=== PATIENT | male | born 2005 | race Caucasian/White ===

== ENCOUNTER 2025-06-15 10:52 | Emergency (ER) | payer MEDICAID, SELFPAY ==
--- NOTE | ~2025-06-15 | US_ITS ---
CLINICAL HISTORY: L sided testicle pain, area of fluctuance US scrotum with Doppler Comparison: None Technique: Real time sonographic imaging, including color-flow imaging, was performed by the in store marketing associate. Multiple phone representative static images were saved for review. Findings: Right testicle normal size and echotexture, 4.2 cm. Normal color flow and spectral tracing. A tiny epididymal head cyst measuring up to 1 mm noted. Otherwise, unremarkable epididymis. No hydrocele or varicocele. Left testicle normal size and echotexture, 4.4 cm. Doppler interrogation reveals relative hyperemia of the testicle and epididymis. Left epididymal head cyst measuring up to 3 mm and 4 mm are noted. There may be some very subtle epididymal hyperemia, suggesting epididymitis/orchitis. Additionally, there is a complex collection lateral to the testicle measuring 3.1 x 3.0 x 1.3 cm with some peripheral blood flow, raising concern for infected collection or abscess/phlegmon.. No hydrocele or varicocele. Impression: 1. Relative hyperemia of the left testicle and epididymis raising concern for orchitis/epididymitis. 2. Additionally there is a circumscribed complex collection lateral to the left testicle measuring up to 3.1 cm maximal dimension, raising concern for infected collection or abscess in this location. This document has been electronically signed by: Vic Stanley MD on 06/15/2025 15:00:44
--- NOTE | ~2025-06-15 | US_ITS ---
CLINICAL HISTORY: L sided testicle pain, area of fluctuance US scrotum with Doppler Comparison: None Technique: Real time sonographic imaging, including color-flow imaging, was performed by the eyeglass cutter. Multiple physician representative static images were saved for review. Findings: Right testicle normal size and echotexture, 4.2 cm. Normal color flow and spectral tracing. A tiny epididymal head cyst measuring up to 1 mm noted. Otherwise, unremarkable epididymis. No hydrocele or varicocele. Left testicle normal size and echotexture, 4.4 cm. Doppler interrogation reveals relative hyperemia of the testicle and epididymis. Left epididymal head cyst measuring up to 3 mm and 4 mm are noted. There may be some very subtle epididymal hyperemia, suggesting epididymitis/orchitis. Additionally, there is a complex collection lateral to the testicle measuring 3.1 x 3.0 x 1.3 cm with some peripheral blood flow, raising concern for infected collection or abscess/phlegmon.. No hydrocele or varicocele. Impression: 1. Relative hyperemia of the left testicle and epididymis raising concern for orchitis/epididymitis. 2. Additionally there is a circumscribed complex collection lateral to the left testicle measuring up to 3.1 cm maximal dimension, raising concern for infected collection or abscess in this location. This document has been electronically signed by: Vic Stanley MD on 06/15/2025 15:00:44
[2025-06-15 10:59] VITALS: BP 145/82; PULSE 108; RESP 18; TEMP 36.7; O2SAT 94; BMI 28.7
[2025-06-15 12:00] VITALS: BP 125/61; PULSE 89; TEMP 37; O2SAT 96
--- NOTE | 2025-06-15 12:03 | ED_ITS ---
HPI - Skin/Abscess/Foreign Bdy General Chief complaint: Skin/Abscess/Foreign Body Stated complaint: Genital Swelling Time Seen by Provider: 06/15/25 11:20 Source: patient, RN notes reviewed and old records reviewed Mode of arrival: ambulatory Limitations: no limitations History of Present Illness ED Provider: MARY Rodgers HPI narrative: 20-year-old male with medical history of asthma, depression, ADHD, presents to the ED due to 1 week of painful scrotal lesion. Patient reports lesion began small and has progressively enlarged. Describes pain as 8/10. No spontaneous drainage to date. Patient reports abscesses in this area before but has not required I&D and have resolved on their own. Denies drainage, penile discharge, dysuria, frequent urination, fevers, chills, abdominal pain, nausea, vomiting Related Data Previous Rx's ?Medication ?Instructions ?Recorded fluticasone propionate 50 1 spray intranasal DAILY 30 days 06/04/21 mcg/actuation nasal #15.8 mL spray,suspension (Children's Flonase Allergy Relief) albuterol sulfate 90 mcg/actuation 2 puff inhalation Q 4-6H PRN 01/01/22 aerosol inhaler shortness of breath or wheez ing 30 days #18 grams doxycycline hyclate 100 mg tablet 100 mg PO BID 7 days #14 tabs 06/15/25 Allergies Allergy/AdvReac Type Severity Reaction Status Date / Time No Known Allergies (No Known Allergy Verified 06/15/25 11:02 Allergies*) Review of Systems Review of Systems: Yes all other systems are reviewed and are negative PMFSH Past Medical History Attestation statement: The following information was validated with the patient. Source: old records reviewed and nursing notes reviewed Medical History (Updated 06/16/25 @ 00:00 by Dannielle Vanessa) ADHD (attention deficit hyperactivity disorder), combined type Sleep-wake cycle disorder Depression Social History Social History Household Members Other:: lives with GM. was in foster care Physical Exam Vital Signs: Vital Signs: Last Vital Signs Temp 97.8 F 06/15/25 17:47 Pulse 89 06/15/25 17:47 Resp 16 06/15/25 17:47 BP 120/64 06/15/25 17:47 Pulse Ox 98 06/15/25 17:47 O2 Del Method Room Air 06/15/25 17:47 BMI result Body Mass Index 28.7 GENERAL APPEARANCE: ?AxOx4, generally well-appearing, no acute distress. HEENT: ?NC, AT. MMM. EOMI, clear conjunctiva, oropharynx clear. NECK: ?Supple without lymphadenopathy.? No stiffness or restricted ROM. HEART:? Normal rate and regular rhythm, normal S1/S2, no m/r/g LUNGS:? CTAB, moving air well. No crackles or wheezes are heard. ABDOMEN: ?Soft, nontender, nondistended with good bowel sounds heard. : No lesions or vesicles of the penile shaft or meatus, no discharge from the meatus, cremasteric reflex intact, no high riding testicle noted, small area of fluctuance with erythema, and area of thickened scrotal skin lateral to the abscess, no drainage noted. BACK: No CVAT, no obvious deformity. EXTREMITIES: ?Without cyanosis, clubbing or edema. NEUROLOGICAL: ?Grossly nonfocal. Alert and oriented, moving all 4 extremities. Observed to ambulate with normal gait. Skin: ?Warm and dry without any rash. Medications Administered Discontinued Medications Generic Name Dose Route Start Last Admin Trade Name Freq PRN Reason Stop Dose Admin Ceftriaxone Sodium 500 mg 06/15/25 17:07 06/15/25 17:37 Ceftriaxone Sodium 500 Mg Vial IM 06/15/25 17:08 500 mg ONCE ONE Administration Lidocaine/Epinephrine 30 ml 06/15/25 16:45 06/15/25 17:37 Lidocaine Hcl 1% Pf/Epi 1:200,000 30 Ml Vial SUBCUT 06/15/25 16:46 Not Given ONCE ONE Lidocaine/Epinephrine 10 ml 06/15/25 16:53 06/15/25 17:37 Lidocaine Hcl 1%/Epi 1:100,000 20 Ml Vial INFILTRATI 06/15/25 16:54 10 ml ONCE ONE Administration Morphine Sulfate 15 mg 06/15/25 17:07 06/15/25 17:37 Morphine Sulfate Immed Release 15 Mg Tablet PO 06/15/25 17:08 15 mg ONCE ONE Administration Medical Decision Making Medical Decision Making MDM Narrative: 20-year-old male with medical history of asthma, depression, ADHD, presents to the ED due to 1 week of painful scrotal lesion. Patient reports lesion began small and has progressively enlarged. Describes pain as 8/10. No spontaneous drainage to date. VS on initial observation-BP 145/82, pulse rate of 108, respiratory rate of 18, afebrile with oral temp of 98.1?, O2 saturation 94% on room air. On physical exam No lesions or vesicles of the penile shaft or meatus, no discharge from the meatus, cremasteric reflex intact, no high riding testicle noted, small area of fluctuance with erythema, and area of thickened scrotal skin lateral to the abscess, no drainage noted. Plan: US scrotal doppler U/S scrotum Doppler reveals hyperemia of L testicle concerning for orchitis/epididdmitis, with circumscribed complex collection of L testicle concerning for abscess. My attending physician Dr. Montoya did bedside ultrasound for I&D. Please see procedure note for I&D completed by Dr. Montoya in the course section of this note. Patient had area cleaned with sterile saline, anesthetized with 1% lidocaine and epinephrine and I and D performed. Copious amounts of purulent fluid was drained from this area and wick was placed. Patient was treated with 500 mg IM ceftriaxone, and discharged home with 7 day course of 100 mg b.i.d. doxycycline for bacterial coverage. I placed referral for Urology for patient to follow up with them. I educated patient on how to care for the opening with wick placement and instructed him to keep that in place for 48 hours and to not submerge the area under water over the next 48 hours. Patient well enough to go home for self-care today. Patient and his family are in agreement of the plan. Differential Diagnosis Differential Diagnoses: The differential diagnosis associated with the presentation includes Testicular torsion Epididymitis Testicular hydrocele Testicular spermatocele Sebaceous cyst Testicular abscess Admission/Observation Consideration of admission/observation: Escalation of care including admission/observation considered Lab Data Labs: Lab Results 06/15/25 Range/Units 17:36 Urine Color Yellow Urine Appearance Cloudy Urine pH 6.5 (5.0-9.0) Ur Specific [place] 1.020 (1.005-1.025) Urine Protein Negative (Neg-Trace) mg/dL Urine Glucose (UA) Negative (Negative) mg/dL Urine Ketones 40 (Negative) mg/dL Urine Blood Large (3+) H (Negative) Urine Nitrite Negative (Negative) Ur Leukocyte Esterase Negative (Negative) Urine RBC >20 H (0-2) /HPF Urine WBC 0-5 (0-5) /HPF Ur Squamous Epith Cells 0-2 (0-2) /HPF Urine Bacteria None Seen (None Seen) Hyaline Casts 0-2 (0-2) /LPF Ur N gonorrhoeae DNA (PCR) NOT DETECTED (Not Detect.) Ur Chlamydia DNA (PCR) NOT DETECTED (Not Detect.) Independent Interpretation I performed an independent interpretation of an: Ultrasound Interpretation: I personally interpreted the scrotal ultrasound which reveals fluid collection concerning for abscess, and concerns of epididymitis, I agree with the radiologist's interpretation Radiology Impression Discussion of test interpretation with radiology: I have reviewed the radiologist's reading. Radiologist Impression: U/S scrotum Doppler Findings: Right testicle normal size and echotexture, 4.2 cm. Normal color flow and spectral tracing. A tiny epididymal head cyst measuring up to 1 mm noted. Otherwise, unremarkable epididymis. No hydrocele or varicocele. Left testicle normal size and echotexture, 4.4 cm. Doppler interrogation reveals relative hyperemia of the testicle and epididymis. Left epididymal head cyst measuring up to 3 mm and 4 mm are noted. There may be some very subtle epididymal hyperemia, suggesting epididymitis/orchitis. Additionally, there is a complex collection lateral to the testicle measuring 3.1 x 3.0 x 1.3 cm with some peripheral blood flow, raising concern for infected collection or abscess/phlegmon.. No hydrocele or varicocele. Impression: 1. Relative hyperemia of the left testicle and epididymis raising concern for orchitis/epididymitis. 2. Additionally there is a circumscribed complex collection lateral to the left testicle measuring up to 3.1 cm maximal dimension, raising concern for infected collection or abscess in this location. This document has been electronically signed by: Vic Stanley MD on 06/15/2025 15:00:44 Dictated By: Vic Stanley MD Signed By: <Electronically signed by Vic Stanley MD in OV> 06/15/25 3940 Independent Historian Clinical information obtained from an independent historian. History obtained from or confirmed by: Parent (Mother and father at bedside corroborating history) External Record Review External record reviewed: Inpatient record, Office record and Outpatient record Chronic Conditions Patient?s care impacted by: Other (ADHD, depression, asthma) Procedures Procedure Narrative Procedure Narrative: I & D / Aspiration? PROCEDURE NOTE Procedure: Incision and Drainage Performed by: Valerio Deutsch MD Indication: Scrotal abscess, subcutaneous Anesthesia was obtained with 6 ml of 1% lidocaine with epinephrine. The area was prepped in the usual sterile fashion. A number 12 scalpel was used to create an incision. Return was 5 ml of purulent malodorous fluid. The abscess was probed. Loculations were broken up. The site was packed with iodoform. Ultrasound guidance was needed. A dressing was placed over the site. The patient tolerated the procedure well. Wound care instructions were given. Iodoform packing was placed ? Post-Procedure Diagnosis: Same ? Complications: none Estimated Blood Loss:? minimal Specimens Removed: no Prosthetic devices/implants: no Management Developer(s): AKILAH rodgers CPT: 82033; 29722 (US-Guided) Discharge Plan Discharge Clinical Impression: Abscess, Epididymitis Patient Disposition: Home, Self-Care Instructions: Epididymitis (ED), Abscess Incision and Drainage (DC) Additional Instructions: You were evaluated in the emergency department today due to left-sided testicular pain and abscess. I&D was performed a good amount of fluid was drained from the area and packing was put in place. Please leave this in place for 48 hours before you remove the string. You can shower as usual but do not sit in a bath or soak the area. You were medicated in the department with 500 mg IM ceftriaxone, and are being prescribed a 7 day course of 100 mg doxycycline that you will take twice daily. Please complete the entire course of antibiotics [facility] will be contacting you within 2 business?days after being discharged from the Emergency?Department.? During this?phone call, they will inform you when your follow up appointment will be scheduled. If you have not received a call from [facility] after 2 business?days, please call the?office at [phone]. Please return to the emergency department if you experience fevers over 100.4?, worsening swelling of the scrotum, worsening pain of the scrotum, expanding redness over the area, increased pus like discharge or any new/worsening/concerning symptoms. Prescriptions: New doxycycline hyclate 100 mg tablet 100 mg PO BID 7 Days Qty: 14 0RF No Action fluticasone propionate [Children's Flonase Allergy Rlf] 50 mcg/actuation spray,suspension 1 spray intranasal DAILY 30 Days Qty: 15.8 5RF albuterol sulfate 90 mcg/actuation HFA aerosol inhaler 2 puff inhalation Q4-6H PRN (Reason: shortness of breath or wheezing) 30 Days Qty: 18 0RF Referrals: [facility] [Provider Group, Urology] Interventions: ED Discharge Assessment Last Done: 06/15/25 17:47 Discharge Date/Time: 06/15/25 17:48 Print Language: Croatian
--- OUTSIDE RECORDS SUMMARY | 2025-06-15 12:06 | XMS_ITS | Patient Health Record ---
Author Organization [facility] Address [address] [place] [address] Care Team Providers Care Deep Tissue Massage Therapist Name Role Phone NO, PCP Primary Care Provider [phone] [facility] Unavailable [phone] Reason For Referral No Information Plan Of Treatment No Information Insurance Providers Payer Name Payer Address Payer Phone Subscriber Number Group Number Insured Name Patient Relationship to Insured Coverage Start Date Coverage End Date [place] [address] [place] [phone] [id number] Emeterio Riojas Self - patient is the insured 4
--- NOTE | 2025-06-15 12:56 | PC.NURSE ---
Ultrasound completed at bedside. Report/results pending. Care ongoing by this RN.
--- NOTE | 2025-06-15 15:57 | PC.NURSE ---
Assumed care of this patient at 1500, Plan of care uncertain, confirmed w/ ED provider Belle peguero for Dr. Elaine consult.
[2025-06-15 16:06] VITALS: BP 120/64; PULSE 89; RESP 16; TEMP 36.6; O2SAT 98
[2025-06-15] MEDS: Morphine Sulfate Immed Release 15 MG TABLET PO (17:37)
[2025-06-15] MEDS: Lidocaine HCl 1%/Epi 1:100,000 20 ML VIAL 10 ML INFILTRATI (17:37)
[2025-06-15 17:46] LABS: Appearance Urine Cloudy; Glucose Urine UA Negative (Negative); PH 6.5 (5.0-9.0); Specific Gravity - Urine 1.020 (1.005-1.025); UMIC TRIGGER UACC YES
[2025-06-15 17:47] VITALS: BP 120/64; PULSE 89; RESP 16; TEMP 36.6; O2SAT 98
[2025-06-16 09:40] LABS: CT PCR Urine NOT DETECTED (Not Detect.); NG PCR Urine NOT DETECTED (Not Detect.)
== END 2025-06-15 17:48 | disposition home or self-care (01) ==
PROVIDERS: Emergency Provider Emergency Medicine
DX: N45.1 Epididymitis (principal); N50.89 Other specified disorders of the male genital organs; R10.22 Pelvic and perineal pain left side; N50.82 Scrotal pain
CPT/HCPCS: 10160; 54700; 76870; 76942; 81001; 87070; 87205; 87491; 87591; 93975; 96372; 99284; J0696; J2004

== ENCOUNTER → 2025-06-15 12:10 | Outpatient (BNV) | payer OTHER, SELFPAY | PROVIDERS: Emergency Provider Emergency Medicine; Visit Provider Radiology Diagnostic Radiology | DX: N45.1 Epididymitis (principal); N50.89 Other specified disorders of the male genital organs | CPT/HCPCS: 76870 ==